=== PATIENT | male | born 1980 | race Caucasian/White ===

== ENCOUNTER → 2020-01-19 11:18 | Outpatient (BNVA) | payer OTHER, SELFPAY | PROVIDERS: PCP Internal Medicine; Referring Provider Internal Medicine; Visit Provider Surgery | DX: Z76.89 Persons encountering health services in other specified circumstances (principal) ==

== ENCOUNTER 2020-02-14 07:49 | Day surgery (SDC) | payer OTHER, SELFPAY ==
--- NOTE | 2020-02-13 09:27 | HO.ANESPROP2 ---
Documented by User: Vannesa Kim 02/13/20 09:28 HPI - Anesthesia Eval Consult details Narrative: 39yo M for [facility] Past Medical History Medical History (Updated 02/13/20 @ 09:28 by Vannesa Kim) No significant past medical history Family History Family History (Updated 01/16/20 @ 12:58 by RYAN Jarrell) Father No problems noted. Mother No problems noted. Surgical History Surgical History History of wisdom tooth extraction Social History Social History Smoking Status: Never smoker Second Hand Smoke Exposure: No Use of substances other than those prescribed or required for medical reasons: No Advance Directives: No Advance Directives Information Provided: Yes Advance Directives on File: No Meds Allergies Allergy/AdvReac Type Severity Reaction Status Date / Time shrimp Allergy Unknown Unknown Verified 01/19/20 11:39 milk Allergy Unknown Unknown Uncoded 01/16/20 12:56 Home Medications Medication Instructions Recorded Confirmed Type No Known Home Meds 01/16/20 01/16/20 History Exam Exam Date and Time: February 13, [id number] Assessment and Plan Assessment Anesthesia Assessment: Chart Reviewed Documented by User: Dennys Goldberg 02/14/20 09:10 [facility] Past Medical History Medical History (Updated 02/13/20 @ 09:28 by Vannesa Kim) No significant past medical history Family History Family History (Updated 01/16/20 @ 12:58 by RYAN Jarrell) Father No problems noted. Mother No problems noted. Surgical History Surgical History History of wisdom tooth extraction Social History Social History Smoking Status: Never smoker Second Hand Smoke Exposure: No Use of substances other than those prescribed or required for medical reasons: No Advance Directives: No Advance Directives Information Provided: Yes Advance Directives on File: No Meds Allergies Allergy/AdvReac Type Severity Reaction Status Date / Time shrimp Allergy Unknown Unknown Verified 01/19/20 11:39 milk Allergy Unknown Unknown Uncoded 01/16/20 12:56 Home Medications Medication Instructions Recorded Confirmed Type No Known Home Meds 01/16/20 01/16/20 History Exam Airway Mallampati Class: II TM Dist: >3cm Neck ROM: Full Heart: RRR Assessment and Plan Assessment Anesthesia Assessment: Anesthesia Plan Discussed Final Anesthetic Review NPO: Yes ASA Class: I Final Preanesthetic Review: Consent Obtained/Reviewed Anesthetic Plan Anesthetic Plan: GA
[2020-02-13 13:42] VITALS: BMI 24.3
[2020-02-14 08:19] VITALS: BP 127/68; PULSE 67; RESP 18; TEMP 36.1; O2SAT 98
[2020-02-14] MEDS: Lactated Ringers 1,000 ML 100 ML IVCONT (08:40)
--- NOTE | 2020-02-14 09:08 | MHC.SHP ---
Pre-Procedural Eval Section B Chief Complaint: Anal Abscess Allergies: Allergies Allergy/AdvReac Type Severity Reaction Status Date / Time shrimp Allergy Unknown Unknown Verified 01/19/20 11:39 milk Allergy Unknown Unknown Uncoded 01/16/20 12:56 Plan Patient has been examined and remains a candidate for the planned procedure
--- NOTE | 2020-02-14 10:35 | PM.OP ---
Brief Operative Note Date of procedure: 02/14/20 Pre-op diagnosis: anal fistula Post-op diagnosis: same Procedure: EUA, placement of seton x 2 Surgeon: Nelson Mckinley MD Anesthesia: GLMA Estimated blood loss (mL): 5 Pathology: none sent Condition: stable Disposition: PACU
[2020-02-14 10:38] VITALS: BP 106/61; PULSE 59; RESP 16; TEMP 36.6; O2SAT 95
[2020-02-14 10:43] VITALS: BP 104/56; PULSE 58; RESP 18; O2SAT 98
[2020-02-14 10:48] VITALS: BP 112/59; BP 115/60; PULSE 69; PULSE 74; RESP 18; O2SAT 97; O2SAT 98
[2020-02-14 11:07] VITALS: BP 116/52; PULSE 65; RESP 18; O2SAT 98
--- NOTE | 2020-02-14 11:30 | HO.POSTANES ---
Post Anesthesia Evaluation Post Anesthesia Evaluation Vital Signs: Vital Signs Temp Pulse Resp BP Pulse Ox 02/14/20 11:07 97.9 F 65 18 116/52 L 98 02/14/20 10:48 74 18 115/60 98 02/14/20 10:43 58 18 104/56 L 98 02/14/20 10:38 97.9 F 59 16 106/61 95 02/14/20 08:19 97 F 67 18 127/68 98 Anesthesia: General LMA Mental Status: Awake Pain Control: Satisfactory Nausea/Vomiting: None Hydration: Adequate Anesthesia-Related Issues: No Anes. Related Issues
--- NOTE | 2020-02-14 15:33 | OP_ITS ---
SURGEON: Nelson Mckinley MD INDICATIONS: The patient is a 39-year-old male, who has had recurrent perianal drainage and swelling and abscess. He was seen in the office and was noted to have 2 external sinuses, one on the left anterior about 4 cm from the verge and one at right posterior at about 2.3 cm from the anal verge. This had not gone away at all and had described periodic drainage. There was no obvious indurated tract. I therefore told him that there was a likelihood that these are because of anal fistula, so I told him that it would be best to proceed with exam under anesthesia and see if we can identify any tract. He understood technique of the procedure. He is aware of the risks, benefits, and alternatives. PREOPERATIVE DIAGNOSIS: POSTOPERATIVE DIAGNOSIS: Anal fistula x2. PROCEDURE PERFORMED: Exam under anesthesia, seton placement x2. ESTIMATED BLOOD LOSS: COMPLICATIONS: ANESTHESIA: ASSISTANTS: SPECIMENS: PREOPERATIVE DIAGNOSES: Recurrent perianal abscess, question anal fistula. DESCRIPTION OF PROCEDURE: He was brought to the operating room, placed in prone lanette-knife position under general anesthesia via endotracheal tube. The buttocks were retracted with wide tape laterally. The perianal area was prepped and draped in usual sterile fashion. Again, an examination of the anal orifice revealed an external sinus at about 4 cm from the anal verge in the left anterior and right posterior at about 2.3 cm from the anal verge. I inserted the Javier-Maher retractor. I examined the anal canal circumferentially. I could not visualize any obvious internal fistulous opening. Furthermore, there was no cord-like induration that would represent a tract. I injected hydrogen peroxide into the external sinus using 20-gauge Angiocath and this came out through an internal sinus opening radially just at the level of the dentate line. I earlier tried to probe the sinus could not identify clear tract. Now, we had the internal sinus opening, this will identify, proceeded to then directed my probe from the external fistulous opening gently through the tract all the way into the internal sinus that had been identified. I passed the [place] drain through this tract using the probe. I looped the [place] drain and tied the loop with silk 3-0 tie. I had shortened the tract and cornelio the skin and subcutaneous layer on the external fistulous opening. I then proceeded to duplicated the same procedure on what appeared to be an external sinus opening on the right posterior. Again, I attempted to identify a tract by using a probe gently, but this was unsuccessful. I injected hydrogen peroxide again through an angiocath through this external sinus effluent through an internal sinus opening at the dentate line radially as well. Either passed the probe again from the external sinus through the tract into the internal sinus opening and passed the [place] drain with this. I passed a vessel loop with this. The vessel loop was looped upon itself and tied together with silk 3-0 tie as a seton. I examined the entire anal circumference using a Javier-Maher retractor and there was no other pathology identified. There was no indurated areas or any other sinus tract openings. I therefore removed the Javier-Maher retractor. I infiltrated the perianal area with Marcaine 0.5% for postop analgesia. The procedure was completed. The patient tolerated the procedure well. There were no complications noted. He will be seen in the office to tighten the seton in about 3 weeks. MD CHIQUI Hahn/HANNAH / [id number]
== END 2020-02-14 11:49 | disposition home or self-care (01) ==
PROVIDERS: PCP Internal Medicine; Visit Provider Surgery
PROC: (CPT 46020; principal; 2020-02-14 09:40)
DX: K60.3 Anal fistula (principal)
CPT/HCPCS: 46020; J0131; J0330; J1100; J1885; J2250; J2405; J3010

== ENCOUNTER → 2020-03-01 14:07 | Outpatient (BNVA) | payer OTHER, SELFPAY | PROVIDERS: PCP Internal Medicine; Visit Provider Surgery | DX: Z76.89 Persons encountering health services in other specified circumstances (principal) ==

== ENCOUNTER 2020-03-07 09:28 | Outpatient (REF) | payer OTHER, SELFPAY | END 2020-03-07 09:29 | disposition home or self-care (01) | LOC: HO.LAB 09:28 | PROVIDERS: PCP Internal Medicine; Visit Provider Internal Medicine | DX: Z20.828 Contact with and (suspected) exposure to other viral communicable diseases (principal) | CPT/HCPCS: C9803; U0003 ==

== ENCOUNTER → 2020-03-22 13:46 | Outpatient (BNVA) | payer OTHER, SELFPAY | PROVIDERS: PCP Internal Medicine; Referring Provider Internal Medicine; Visit Provider Surgery | DX: Z76.89 Persons encountering health services in other specified circumstances (principal) ==

== ENCOUNTER → 2020-05-09 15:08 | Outpatient (BNVA) | payer OTHER, SELFPAY | PROVIDERS: PCP Internal Medicine; Referring Provider Internal Medicine; Visit Provider Surgery ==

== ENCOUNTER → 2020-06-11 09:55 | Outpatient (BNVA) | payer OTHER, SELFPAY | PROVIDERS: PCP Internal Medicine; Visit Provider Surgery ==

== ENCOUNTER → 2020-07-09 10:00 | Outpatient (BNVA) | payer OTHER, SELFPAY | PROVIDERS: PCP Internal Medicine; Visit Provider Surgery ==

== ENCOUNTER → 2020-08-13 10:01 | Outpatient (BNVA) | payer OTHER, SELFPAY | PROVIDERS: PCP Internal Medicine; Visit Provider Surgery ==

== ENCOUNTER → 2020-09-12 10:08 | Outpatient (BNVA) | payer OTHER, SELFPAY | PROVIDERS: PCP Internal Medicine; Visit Provider Surgery ==

== ENCOUNTER → 2020-10-15 10:26 | Outpatient (BNVA) | payer OTHER, SELFPAY | PROVIDERS: PCP Internal Medicine; Referring Provider Internal Medicine; Visit Provider Surgery ==

== ENCOUNTER → 2020-11-15 11:14 | Outpatient (BNVA) | payer OTHER, SELFPAY | PROVIDERS: PCP Internal Medicine; Referring Provider Internal Medicine; Visit Provider Surgery ==

== ENCOUNTER → 2020-12-13 09:53 | Outpatient (BNVA) | payer OTHER, SELFPAY | PROVIDERS: PCP Internal Medicine; Visit Provider Surgery ==

== ENCOUNTER → 2021-02-07 14:52 | Outpatient (BNVA) | payer MEDICAID, SELFPAY | PROVIDERS: Visit Provider Surgery ==

== ENCOUNTER → 2021-07-03 09:08 | Outpatient (BNVA) | payer MEDICAID, SELFPAY | PROVIDERS: Visit Provider Surgery | DX: K60.3 Anal fistula (principal) | CPT/HCPCS: 99212 ==

== ENCOUNTER → 2021-08-12 11:03 | Outpatient (BNVA) | payer MEDICAID, SELFPAY | PROVIDERS: Visit Provider Surgery | DX: Z09 Encounter for follow-up examination after completed treatment for conditions other than malignant neoplasm (principal); Z87.19 Personal history of other diseases of the digestive system | CPT/HCPCS: 99212 ==

== ENCOUNTER → 2021-10-09 15:25 | Outpatient (BNVA) | payer MEDICAID, SELFPAY | PROVIDERS: Visit Provider Surgery | DX: K60.3 Anal fistula (principal) | CPT/HCPCS: 99212 ==

== ENCOUNTER → 2022-07-16 11:18 | Outpatient (BNVA) | payer OTHER, SELFPAY | PROVIDERS: PCP Nurse Practitioner Family; Visit Provider Surgery | DX: Z13.89 Encounter for screening for other disorder (principal) ==

== ENCOUNTER 2023-02-26 11:18 | Outpatient (AMB) | payer OTHER, SELFPAY ==
--- NOTE | 2023-02-26 11:22 | A.OFFVIS_ITS ---
Intake Vital Signs 02/26/23 11:23 Height 6 ft 2 in Weight 206 lb BMI 26.4 BP 126/71 Blood Pressure Location Rt brachial Position Sitting Pulse 58 Intake Visit Reasons: Perianal abscess, rediscuss exam under anesthesia Intake Note: This patient presents for an assessment for perianal abscess, rediscuss EUA. Patient c/o; reports no changes or complaints at this time. 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 He had 2 anal fistulas and had undergone seton placement for both of these in 2020 for an anal fistula and this had cut through the fistula tract last year. However, the past few months, he has been noticing recurrent drainage from the perianal area again on the left side. The old fistula on the right side has healed completely.. He denies any pain. I had seen him earlier this year and had scheduled him for an exam under anesthesia but he just started a new job so he had put that off in the meantime. He says he is ready to have the exam under anesthesia scheduled. [facility] Medical History Anal fistula No significant past medical history Surgical History History of surgery (02/14/20) History of wisdom tooth extraction Family History Father No problems noted. Mother No problems noted. Social History Housing: House Alcohol intake: current Alcohol intake frequency: a few times a month Patient Tobacco Use Status: Never used Tobacco Second Hand Smoke Exposure: No service: No Current occupational status: employed Cognitive needs: No Hearing needs: No Vision needs: No Review of Systems Const Denies chills and Denies fever(s) Card Denies chest pain, Denies dyspnea and Denies dyspnea on exertion Resp Denies cough, Denies dyspnea and Denies dyspnea on exertion GI Denies hematochezia and Denies change in bowel habits Denies hematuria and Denies difficulty urinating Musc Denies back pain and Denies limited range of motion Neuro Denies focal weakness and Denies convulsions Psych Denies depression and Denies mood swings Physical Exam Vital Signs: Last Vital Signs Pulse 58 02/26/23 11:23 BP 126/71 02/26/23 11:23 BMI result Body Mass Index 26.4 Const General: comfortable and no acute distress Orientation/consciousness: patient oriented x3 Neck Neck: Yes no lymphadenopathy Resp Auscultation: clear to auscultation bilaterally Cardio Rhythm: regular rhythm GI Other: Rectal exam shows what to be a sinus without any significant induration on the left perianal area anteriorly about 2 cm from the verge, dry, no swelling Palpation (GI): Soft to palpation, nontender and no guarding Neuro General: patient oriented x3 Assessment & Plan Assessment & Plan (1) Anal fistula: Code(s): K60.3 - Anal fistula Plan: He has a history of 2 anal fistulas with seton placement for both in the past. It appears that he has a recurrent fistula with a sinus on the left anterior perianal area about 2 cm from the anal verge. I explained to him the technique of exam under anesthesia to identify any fistulous tract. I explained the possibility of doing a repeat seton placement or fistulotomy. I discussed the risks including but not limited to bleeding, infections, poor healing, think her injury, as well as the benefits and alternatives. Coding Level of Care Code Est Pt Level 3 (28284) Diagnoses Anal fistula K60.3
[2023-02-26 11:23] VITALS: BP 126/71; PULSE 58; BMI 26.4
== END 2023-02-26 11:38 | disposition home or self-care (01) ==
PROVIDERS: PCP Nurse Practitioner Family; Visit Provider Surgery
DX: K60.3 Anal fistula (principal)
CPT/HCPCS: 99213

== ENCOUNTER → 2023-02-26 11:18 | Outpatient (BNVA) | payer OTHER, SELFPAY | PROVIDERS: PCP Nurse Practitioner Family; Visit Provider Surgery ==

== ENCOUNTER 2023-03-31 07:29 | Day surgery (SDC) | payer OTHER, SELFPAY ==
[2023-03-27 10:23] VITALS: BMI 26.4
--- NOTE | 2023-03-30 08:30 | HO.ANESPROP2 ---
Documented by User: Vannesa Kim NP 03/30/23 08:30 HPI - Anesthesia Eval Consult details Narrative: 42yo M for EUA,poss Fistulotomy,poss senton PMFSH Active Problems Active Problems: All Active Problems (Updated 07/16/22 @ 11:53 by Nelson Mckinley MD) Toenail fungus (Acute) Skin lesion (Acute) Physical exam (Acute) Anal fistula (Acute) Perianal abscess (Acute) Past Medical History Medical History Anal fistula No significant past medical history Family History Family History Father No problems noted. Mother No problems noted. Surgical History Surgical History History of surgery (02/14/20) History of wisdom tooth extraction Social History Social History Housing: House Alcohol intake: current Alcohol intake frequency: a few times a month Patient Tobacco Use Status: Never used Tobacco Second Hand Smoke Exposure: No Use of substances other than those prescribed or required for medical reasons: Yes Substance Use Frequency: Occasionally Are you DNR?: No Advance Directives: No Advance Directives Information Provided: Yes Advance Directives on File: No service: No Current occupational status: employed Cognitive needs: No Hearing needs: No Vision needs: No Meds Allergies Allergy/AdvReac Type Severity Reaction Status Date / Time shrimp Allergy Unknown Unknown Verified 02/26/23 11:29 milk Allergy Unknown Unknown Uncoded 02/26/23 11:29 Exam Height,Weight and Vital Signs: Height 6 ft 2 in Weight 93.44 kg Assessment and Plan Assessment Anesthesia Assessment: Chart Reviewed Documented by User: Rosa Maria Nuñez MD 03/31/23 09:31 PMFSH Past Medical History Medical History Anal fistula No significant past medical history Family History Family History Father No problems noted. Mother No problems noted. Surgical History Surgical History History of surgery (02/14/20) History of wisdom tooth extraction History of Problems with Anesthesia: No Social History Social History Housing: House Alcohol intake: current Alcohol intake frequency: a few times a month Patient Tobacco Use Status: Never used Tobacco Second Hand Smoke Exposure: No Use of substances other than those prescribed or required for medical reasons: Yes Substance Use Frequency: Occasionally Are you DNR?: No Advance Directives: No Advance Directives Information Provided: Yes Advance Directives on File: No service: No Current occupational status: employed Cognitive needs: No Hearing needs: No Vision needs: No Meds Allergies Allergy/AdvReac Type Severity Reaction Status Date / Time shrimp Allergy Unknown Unknown Verified 02/26/23 11:29 milk Allergy Unknown Unknown Uncoded 02/26/23 11:29 Exam Airway Mallampati Class: III TM Dist: >3cm Neck ROM: Full Loose/Missing/Broken Teeth: No Heart: RRR Lungs: CTA Assessment and Plan Assessment Anesthesia Assessment: Anesthesia Plan Discussed Final Anesthetic Review History of Problems with Anesthesia: No NPO: Yes ASA Class: II Final Preanesthetic Review: Meds/Allgs Chart Reviewed, Consent Obtained/Reviewed and Anes Risks/Benef Reviewed Patient Risk: Low Procedure Risk: Intermediate Anesthetic Plan Anesthetic Plan: GA Disposition: Standard PACU
[2023-03-31 07:53] VITALS: BMI 25.6
[2023-03-31 08:16] VITALS: BP 124/72; PULSE 65; RESP 16; TEMP 36.7; O2SAT 100
[2023-03-31] MEDS: Lactated Ringers 1,000 ML 100 ML IVCONT (08:18)
--- NOTE | 2023-03-31 09:11 | P.HPSUR_ITS ---
Pre-Procedural Eval Section A Date of Service: 03/31/23 Section B Chief Complaint: Anal fistula Details of Present Illness: has recurrence of a fistulous tract on the left perianal area Relevant Social History: None Present Medications: see Short Stay Collaborative assessment Medical History: Significant History (previous seton) History of Previous Operations: Relevant previous surgery/procedure and date(s) (previous seton 2 years ago) Allergies: Allergies Allergy/AdvReac Type Severity Reaction Status Date / Time shrimp Allergy Unknown Unknown Verified 02/26/23 11:29 milk Allergy Unknown Unknown Uncoded 02/26/23 11:29 Review of Systems Sugical H&P ROS: Negative: Constitution, Cardiovascular, Respiratory, Neurological, Psychiatric, Hem-Onc, Allergic/Immunologic, Gastrointestinal, Genitourinary, Musculoskeletal, Integumentary, Endocrine and Eyes/Ear s/Nose/Throat Exam Surgical H&P Exam: Normal: HEENT, Normal: Heart, Normal: Lungs, Normal: Extremities, Normal: Abdomen, Normal: Skin and Normal: Neurological Exam Comment: anal fistula, Plan Diagnosis/Plan: Unchanged I have reviewed the history and physical and performed a pertinent physical examination on my patient. No changes have occurred unless specified. Time Spent With Patient Time: Total time managing care of this patient today ____ minutes.
--- NOTE | 2023-03-31 10:15 | W.PM.OPN ---
Operative Note Operative Note Date of Service: 03/31/23 Narrative: Preop diagnosis: Fistula, recurrent Postop diagnose: The same Procedure: Exam under anesthesia, placement of seton for anal fistula Surgeon: Nelson Mckinley MD The patient is a 42-year-old male with note of an area of recurrent drainage on the left perianal region. This was consistent with an anal fistula. He had a history of this in the past and had undergone seton placement. He understood the technique of exam under anesthesia and possible seton placement. He was aware of the risks, benefits, and alternatives. He was brought to the operating room. He was placed in prone lanette-knife position under general anesthesia via endotracheal tube. The buttocks were retracted with wide tape laterally. The perianal area was prepped and draped in the usual sterile fashion. A surgical time-out was done. The patient received Cefotan 2 g IV preoperatively. I reiterated the perianal area with lidocaine 1%. Examination of the perianal area revealed an external sinus on the left perianal skin, about 2 cm from the anal verge. I inserted the Javier Maher retractor. I examined the anal canal circumferentially. He had hemorrhoidal tissue but there was no other pathology seen in the anal canal. I started a probe through the external sinus in this was gently advanced without difficulty to an internal sinus in the anal canal radially dentate line. I passed a seton using this probe. I tighten the seton and close the loop with a silk 2 0 tie. I shorten the fistula tract by opening up the seen overlying the seton at the external sinus with electrocautery. I observed for hemostasis. Once hemostasis wa confirmed, I infiltrated the perianal area with Marcaine 0.5% for postop analgesia. The procedure was then completed The patient tolerated procedure well. There were no immediate complications. Initial and final counts of sponges and instruments were correct. Estimated blood loss was about 5 cc The patient was extubated without difficulty and transferred to the recovery room with stable vital signs.
[2023-03-31 10:25] VITALS: BP 121/63; PULSE 75; RESP 18; TEMP 36.4; O2SAT 99
[2023-03-31 10:30] VITALS: BP 120/72; PULSE 80; RESP 18; O2SAT 98
[2023-03-31 10:35] VITALS: BP 123/69; PULSE 66; RESP 20; O2SAT 96
[2023-03-31 10:40] VITALS: BP 117/71; PULSE 65; RESP 18; TEMP 36.3; O2SAT 96
[2023-03-31 10:55] VITALS: BP 121/70; PULSE 61; RESP 16; TEMP 36.3; O2SAT 96
== END 2023-03-31 11:39 | disposition home or self-care (01) ==
PROVIDERS: Visit Provider Surgery
PROC: (CPT 46020; principal; 2023-03-31 09:10)
DX: K60.3 Anal fistula (principal); K64.8 Other hemorrhoids; Z98.890 Other specified postprocedural states
CPT/HCPCS: 46020; J0131; J1100; J1885; J2250; J2405; J2704; J2795; J3010

== ENCOUNTER → 2023-03-31 07:29 | Outpatient (BNV) | payer OTHER, SELFPAY | PROVIDERS: Visit Provider Surgery | DX: K60.3 Anal fistula (principal) | CPT/HCPCS: 46020 ==

== ENCOUNTER 2023-04-15 09:31 | Outpatient (AMB) | payer OTHER, SELFPAY ==
--- NOTE | 2023-04-15 09:59 | MHC.OFFVIS ---
Intake Intake Visit Reasons: S/P EUA, poss fistulotomy, poss seton Intake Note: This patient presents for a post-op assessment status post EUA, seton placement. Patient c/o; reports drainage, ? seton moved. 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 He tolerated procedure well. He denies any significant complaints. He denies any new induration or significant discharge. [facility] Medical History Anal fistula No significant past medical history Surgical History Hx of surgical procedure (~03/31/23) History of surgery (02/14/20) History of wisdom tooth extraction Family History Father No problems noted. Mother No problems noted. Social History Housing: House Alcohol intake: current Alcohol intake frequency: a few times a month Patient Tobacco Use Status: Never used Tobacco Second Hand Smoke Exposure: No service: No Current occupational status: employed Cognitive needs: No Hearing needs: No Vision needs: No Review of Systems Const Denies chills and Denies fever(s) Card Denies chest pain, Denies dyspnea and Denies dyspnea on exertion Resp Denies cough, Denies dyspnea and Denies dyspnea on exertion GI Denies hematochezia and Denies change in bowel habits Denies hematuria and Denies difficulty urinating Musc Denies back pain and Denies limited range of motion Neuro Denies focal weakness and Denies convulsions Psych Denies depression and Denies mood swings Physical Exam Const General: comfortable and no acute distress GI Other: Rectal exam shows the seton to be in place, no new induration or an fistula, Assessment & Plan Assessment & Plan (1) Anal fistula: Code(s): K60.3 - Anal fistula Plan: Status post seton placement. The fistula tract appears short. The seton seems snug around this so I did not tighten this. There is no new sinus, induration or abscess I will see him again in about a month and see if I can tighten the seton. Coding Level of Care Code Global (78626) Diagnoses Anal fistula K60.3
== END 2023-04-15 10:41 | disposition home or self-care (01) ==
PROVIDERS: PCP Nurse Practitioner Family; Visit Provider Surgery
DX: K60.3 Anal fistula (principal)
CPT/HCPCS: 99024

== ENCOUNTER → 2023-04-15 09:31 | Outpatient (BNVA) | payer OTHER, SELFPAY | PROVIDERS: PCP Nurse Practitioner Family; Visit Provider Surgery ==

== ENCOUNTER 2023-07-01 15:30 | Outpatient (AMB) | payer OTHER, SELFPAY ==
--- NOTE | 2023-07-01 15:33 | MHC.OFFVIS ---
Intake Vital Signs 07/01/23 15:38 Weight 205 lb BP 125/66 Blood Pressure Location Rt brachial Position Sitting Pulse 63 Intake Visit Reasons: anal fistula, seton Intake Note: This patient presents for a follow-up assessment for seton. Pt c/o; reports no changes. 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 He is here for postop visit. He denies any new complaints. Denies any significant drainage. [facility] Medical History Anal fistula No significant past medical history Surgical History Hx of surgical procedure (~03/31/23) History of surgery (02/14/20) History of wisdom tooth extraction Family History Father No problems noted. Mother No problems noted. Social History Housing: House Alcohol intake: current Alcohol intake frequency: a few times a month Patient Tobacco Use Status: Never used Tobacco Second Hand Smoke Exposure: No service: No Current occupational status: employed Cognitive needs: No Hearing needs: No Vision needs: No Review of Systems Const Denies chills and Denies fever(s) Card Denies chest pain, Denies dyspnea and Denies dyspnea on exertion Resp Denies cough, Denies dyspnea and Denies dyspnea on exertion GI Denies hematochezia and Denies change in bowel habits Denies hematuria and Denies difficulty urinating Musc Denies back pain and Denies limited range of motion Neuro Denies focal weakness and Denies convulsions Psych Denies depression and Denies mood swings Physical Exam Vital Signs: Last Vital Signs Pulse 63 07/01/23 15:38 BP 125/66 07/01/23 15:38 Const General: comfortable and no acute distress Resp Effort & Inspection: normal respiratory effort GI Other: Rectal exam shows the seton to be in place, the fistula tract is short, there has no new induration or any sinus Assessment & Plan Assessment & Plan (1) Anal fistula: Code(s): K60.3 - Anal fistula Plan: Status post seton placement. I tighten the seton to make this more snug around the remaining fistula tract. The tract itself is short. I will see him again in the office in about a month. Coding Level of Care Code Est Pt Level 2 (55416) Diagnoses Anal fistula K60.3
[2023-07-01 15:38] VITALS: BP 125/66; PULSE 63
== END 2023-07-01 15:51 | disposition home or self-care (01) ==
PROVIDERS: PCP Nurse Practitioner Family; Visit Provider Surgery
DX: K60.3 Anal fistula (principal)
CPT/HCPCS: 99212

== ENCOUNTER → 2023-07-01 15:30 | Outpatient (BNVA) | payer OTHER, SELFPAY | PROVIDERS: PCP Nurse Practitioner Family; Visit Provider Surgery ==

== ENCOUNTER 2023-08-06 15:36 | Outpatient (AMB) | payer OTHER, SELFPAY ==
--- NOTE | 2023-08-06 15:42 | A.OFFVIS_ITS ---
Vital Signs 08/06/23 15:47 Weight 199 lb BP 119/56 L Blood Pressure Location Rt brachial Position Sitting Pulse 59 Intake Visit Reasons: anal fistula, seton, 1 mo follow up Intake Note: This patient presents for a one month follow-up for seton. Patient c/o; reports no complaints. Battery Container Finishing Hand Required: No Accompanied by: Self / Same As Patient Allergies shrimp Allergy (Unknown, Verified 08/06/23 15:42) Unknown milk Allergy (Unknown, Uncoded 08/06/23 15:42) Unknown Medication List - Last Reconciled 08/06/23 by Nelson Mckinley MD docusate sodium (Colace) 100 mg PO BID ibuprofen 600 mg PO Q6H PRN oxycodone-acetaminophen 5-325 mg (Percocet) 1 tab PO Q4-6H PRN HPI HPI anal fistula, seton, 1 mo follow up: Details: He is here for follow-up for his anal fistula with a seton in place. He denies any new complaints. Denies any significant drainage from the area. He denies pain nor any new induration. PFSH Medical History Anal fistula No significant past medical history Surgical History Hx of surgical procedure (~03/31/23) History of surgery (02/14/20) History of wisdom tooth extraction Family History Father No problems noted. Mother No problems noted. Social History Housing: House Alcohol intake: current Alcohol intake frequency: a few times a month Patient Tobacco Use Status: Never used Tobacco Second Hand Smoke Exposure: No service: No Current occupational status: employed Cognitive needs: No Hearing needs: No Vision needs: No Physical Exam Vital Signs: Last Vital Signs Pulse 59 08/06/23 15:47 BP 119/56 L 08/06/23 15:47 Const General: comfortable and no acute distress Resp Effort & Inspection: normal respiratory effort GI Other: Rectal exam shows the seton in place on the left perianal area with a short residual tract. The seton seems to be still very snug around the remaining tract. There were no new induration or sinuses. Assessment & Plan Assessment & Plan (1) Anal fistula: Code(s): K60.3 - Anal fistula Category: Medical Plan: Seton in place. I did not tighten the seton as this will still very snug around the remaining fistula tract. I will see him again next week and re-evaluate him. There has a good chance that we will probably do a completion fistulotomy if there has no significant involvement of sphincter anymore by then. I will discuss this with him on his next visit.
[2023-08-06 15:47] VITALS: BP 119/56; PULSE 59
== END 2023-08-06 16:06 | disposition home or self-care (01) ==
PROVIDERS: PCP Nurse Practitioner Family; Visit Provider Surgery
DX: K60.3 Anal fistula (principal)
CPT/HCPCS: 99212

== ENCOUNTER → 2023-08-06 15:36 | Outpatient (BNVA) | payer OTHER, SELFPAY | PROVIDERS: PCP Nurse Practitioner Family; Visit Provider Surgery ==

== ENCOUNTER 2023-09-03 15:43 | Outpatient (AMB) | payer OTHER, SELFPAY ==
--- NOTE | 2023-09-03 15:43 | A.OFFVIS_ITS ---
Intake Visit Reasons: anal fistula, seton, 1 mo follow up Intake Note: This patient presents for a one month follow-up, seton. Pt c/o; reports no changes or complaints at this time. Immersion Metal Cleaner Required: No Accompanied by: Self / Same As Patient Allergies shrimp Allergy (Unknown, Verified 09/03/23 15:44) Unknown milk Allergy (Unknown, Uncoded 09/03/23 15:44) Unknown Medication List - Last Reconciled 09/03/23 by Nelson Mckinley MD docusate sodium (Colace) 100 mg PO BID ibuprofen 600 mg PO Q6H PRN oxycodone-acetaminophen 5-325 mg (Percocet) 1 tab PO Q4-6H PRN HPI HPI anal fistula, seton, 1 mo follow up: Details: He is here for follow-up for his anal fistula with a seton in place. He denies any new complaints. He denies any significant drainage. PFSH Medical History Anal fistula No significant past medical history Surgical History Hx of surgical procedure (~03/31/23) History of surgery (02/14/20) History of wisdom tooth extraction Family History Father No problems noted. Mother No problems noted. Social History Housing: House Alcohol intake: current Alcohol intake frequency: a few times a month Patient Tobacco Use Status: Never used Tobacco Second Hand Smoke Exposure: No service: No Current occupational status: employed Cognitive needs: No Hearing needs: No Vision needs: No Review of Systems Const Denies chills and Denies fever(s) Card Denies chest pain, Denies dyspnea and Denies dyspnea on exertion Resp Denies cough, Denies dyspnea and Denies dyspnea on exertion GI Denies hematochezia and Denies change in bowel habits Denies hematuria and Denies difficulty urinating Musc Denies back pain and Denies limited range of motion Neuro Denies focal weakness and Denies convulsions Psych Denies depression and Denies mood swings Physical Exam Const General: comfortable and no acute distress GI Other: Rectal exam shows the seton to be in place, still tight around the remaining fistula tract. The fistula tract is now very short Assessment & Plan Assessment & Plan (1) Anal fistula: Code(s): K60.3 - Anal fistula Category: Medical Plan: Seton in place. I explained to him the option of bringing him back to the operating room and doing a fistulotomy on the remaining fistula tract. The other option is to continue to keep the seton in place and allow it to cut through completely which may take time. He wants to think about this. He says he will leave the seton in place and we will see him again in about a month. He will decide on whether he wants to go to a fistulotomy by then. Coding Level of Care Code Est Pt Level 2 (74133) Diagnoses Anal fistula K60.3
== END 2023-09-03 15:58 | disposition home or self-care (01) ==
PROVIDERS: PCP Nurse Practitioner Family; Visit Provider Surgery
DX: K60.3 Anal fistula (principal)
CPT/HCPCS: 99212

== ENCOUNTER → 2023-09-03 15:43 | Outpatient (BNVA) | payer OTHER, SELFPAY | PROVIDERS: PCP Nurse Practitioner Family; Visit Provider Surgery ==

== ENCOUNTER 2024-01-11 16:04 | Outpatient (AMB) | payer OTHER, SELFPAY ==
--- NOTE | 2024-01-11 16:05 | MHC.OFFVIS ---
Intake Visit Reasons: 1 month seton follow up Intake Note: This patient presents for follow-up assessment for seton. Pt c/o; reports no complaints. Cyber Forensics Analyst Required: No Accompanied by: Self / Same As Patient Allergies shrimp Allergy (Unknown, Verified 01/11/24 16:08) Unknown milk Allergy (Unknown, Uncoded 01/11/24 16:08) Unknown Medication List - Last Reconciled 01/12/24 by Nelson Mckinley MD docusate sodium (Colace) 100 mg PO BID ibuprofen 600 mg PO Q6H PRN oxycodone-acetaminophen 5-325 mg (Percocet) 1 tab PO Q4-6H PRN HPI HPI 1 month seton follow up: Details: He is here for follow-up for his seton for his anal fistula. He denies any new complaints. He denies any significant drainage. PFSH Medical History Anal fistula No significant past medical history Surgical History Hx of surgical procedure (~03/31/23) History of surgery (02/14/20) History of wisdom tooth extraction Family History Father No problems noted. Mother No problems noted. Social History Housing: House Alcohol intake: current Alcohol intake frequency: a few times a month Patient Tobacco Use Status: Never used Tobacco Second Hand Smoke Exposure: No service: No Current occupational status: employed Cognitive needs: No Hearing needs: No Vision needs: No Review of Systems Const Denies chills and Denies fever(s) Card Denies chest pain, Denies dyspnea and Denies dyspnea on exertion Resp Denies cough, Denies dyspnea and Denies dyspnea on exertion GI Denies hematochezia and Denies change in bowel habits Denies hematuria and Denies difficulty urinating Musc Denies back pain and Denies limited range of motion Neuro Denies focal weakness and Denies convulsions Psych Denies depression and Denies mood swings Physical Exam Const General: comfortable and no acute distress Resp Effort & Inspection: normal respiratory effort GI Other: Rectal exam shows the seton to be in place with a very short fistula tract remaining on the left side, no new sinuses Assessment & Plan Assessment & Plan (1) Anal fistula: Code(s): K60.3 - Anal fistula Category: Medical Plan: I was still able to tighten the seton some more using a silk 2-0 tie. This was snug on the very short residual fistula tract I will see him again in the office next month. I am hoping that the seton was cut through completely by then. Coding Level of Care Code Est Pt Level 2 (32396) Diagnoses Anal fistula K60.3
== END 2024-01-11 16:16 | disposition home or self-care (01) ==
PROVIDERS: PCP Nurse Practitioner Family; Visit Provider Surgery
DX: K60.3 Anal fistula (principal)
CPT/HCPCS: 99212

== ENCOUNTER → 2024-01-11 16:04 | Outpatient (BNVA) | payer OTHER, SELFPAY | PROVIDERS: PCP Nurse Practitioner Family; Visit Provider Surgery ==

== ENCOUNTER 2024-02-15 15:41 | Outpatient (AMB) | payer OTHER, SELFPAY ==
[2024-02-15 15:46] VITALS: BP 126/63; PULSE 58; BMI 25.6
--- NOTE | 2024-02-15 15:46 | MHC.OFFVIS ---
Vital Signs 02/15/24 15:46 Height 6 ft 2 in Weight 199 lb 8 oz BMI 25.6 BP 126/63 Blood Pressure Location Rt brachial Position Sitting Pulse 58 Intake Visit Reasons: 1 month seton follow up Intake Note: This patient presents for one month follow-up seton. Pt c/o; reports no complaints. Transformation Consultant Required: No Accompanied by: Self / Same As Patient Allergies shrimp Allergy (Unknown, Verified 02/15/24 15:47) Unknown milk Allergy (Unknown, Uncoded 02/15/24 15:47) Unknown Medication List - Last Reconciled 02/15/24 by Nelson Mckinley MD docusate sodium (Colace) 100 mg PO BID ibuprofen 600 mg PO Q6H PRN oxycodone-acetaminophen 5-325 mg (Percocet) 1 tab PO Q4-6H PRN HPI HPI 1 month seton follow up: Details: He is here for follow-up for his anal fistula with a seton in place. He denies any complaints with this. He denies any pain or tenderness. He says that the seton is still in place. [facility] Medical History Anal fistula No significant past medical history Surgical History Hx of surgical procedure (~03/31/23) History of surgery (02/14/20) History of wisdom tooth extraction Family History Father No problems noted. Mother No problems noted. Social History Housing: House Alcohol intake: current Alcohol intake frequency: a few times a month Patient Tobacco Use Status: Never used Tobacco Second Hand Smoke Exposure: No service: No Current occupational status: employed Cognitive needs: No Hearing needs: No Vision needs: No Review of Systems Const Denies chills and Denies fever(s) Card Denies chest pain Resp Denies cough GI Denies abdominal pain Physical Exam Vital Signs: Last Vital Signs Pulse 58 02/15/24 15:46 BP 126/63 02/15/24 15:46 BMI result Body Mass Index 25.6 Const General: comfortable and no acute distress Resp Effort & Inspection: normal respiratory effort Back/Spine/Pelvis Other: Rectal exam shows the seton to be in place with a very short remaining fistula tract. The seton is still tight there is no evidence of any new sinus or induration Assessment & Plan Assessment & Plan (1) Anal fistula: Code(s): K60.3 - Anal fistula Category: Medical Plan: Status post seton placement. The seton remains very tight on the short the tract. I therefore did not tighten this. I will see him again in about 1-2 months. I expect the seton to eventually cut through completely. Overall, he is doing very well. Coding Level of Care Code Est Pt Level 2 (24766) Diagnoses Anal fistula K60.3
== END 2024-02-15 15:50 | disposition home or self-care (01) ==
LOC: HO.HGS 15:42
PROVIDERS: PCP Nurse Practitioner Family; Visit Provider Surgery
DX: K60.30 Anal fistula, unspecified (principal)
CPT/HCPCS: 99212

== ENCOUNTER → 2024-02-15 15:41 | Outpatient (BNVA) | payer OTHER, SELFPAY | PROVIDERS: PCP Nurse Practitioner Family; Visit Provider Surgery ==

== ENCOUNTER 2024-03-24 15:45 | Outpatient (AMB) | payer OTHER, SELFPAY ==
--- NOTE | 2024-03-24 16:05 | MHC.OFFVIS ---
Vital Signs 03/24/24 16:06 Height 6 ft 2 in Weight 199 lb 8.011 oz BMI 25.6 BP 122/58 L Blood Pressure Location Rt brachial Position Sitting Pulse 56 Intake Visit Reasons: one month follow-up seton Intake Note: This patient presents for one month follow-up seton. Pt c/o; reports no complaints. Tombstone Polisher Required: No Accompanied by: Self / Same As Patient Allergies shrimp Allergy (Unknown, Verified 03/24/24 16:12) Unknown milk Allergy (Unknown, Uncoded 03/24/24 16:12) Unknown HPI HPI one month follow-up seton: Details: He is here for follow-up for his anal fistula with a seton in place. He denies any new complaints. Denies any induration or new discharge. PFSH Medical History Anal fistula No significant past medical history Surgical History Hx of surgical procedure (~03/31/23) History of surgery (02/14/20) History of wisdom tooth extraction Family History Father No problems noted. Mother No problems noted. Social History Housing: House Alcohol intake: current Alcohol intake frequency: a few times a month Patient Tobacco Use Status: Never used Tobacco Second Hand Smoke Exposure: No service: No Current occupational status: employed Cognitive needs: No Hearing needs: No Vision needs: No Review of Systems Const Denies chills and Denies fever(s) Card Reports no additional complaints Resp Reports no additional complaints Physical Exam Vital Signs: BMI result Body Mass Index 25.6 Const General: comfortable and no acute distress Resp Effort & Inspection: normal respiratory effort GI Other: Rectal exam shows the seton to be in place but with a very short remaining fistula tract, probably 4 mm in length with no other areas of induration or sinuses Assessment & Plan Assessment & Plan (1) Anal fistula: Code(s): K60.3 - Anal fistula Category: Medical Plan: His fistula tract this even much shorter in his down to maybe a few mm. He is able to tighten the seton a little more although there is not much length left. I will not be surprised if the seton cut through completely few weeks I will check on him again in about a month. Coding Level of Care Code Est Pt Level 2 (52789) Diagnoses Anal fistula K60.3
[2024-03-24 16:06] VITALS: BP 122/58; PULSE 56; BMI 25.6
== END 2024-03-24 16:19 | disposition home or self-care (01) ==
PROVIDERS: PCP Nurse Practitioner Family; Visit Provider Surgery
DX: K60.30 Anal fistula, unspecified (principal)
CPT/HCPCS: 99212

== ENCOUNTER → 2024-03-24 15:45 | Outpatient (BNVA) | payer OTHER, SELFPAY | PROVIDERS: PCP Nurse Practitioner Family; Visit Provider Surgery ==

== ENCOUNTER 2024-04-27 13:42 | Outpatient (AMB) | payer OTHER, SELFPAY ==
[2024-04-27 13:45] VITALS: BP 119/61; PULSE 68; BMI 26.2
--- NOTE | 2024-04-27 13:45 | MHC.OFFVIS ---
Vital Signs 04/27/24 13:45 Height 6 ft 2 in Weight 204 lb 6 oz BMI 26.2 BP 119/61 Blood Pressure Location Rt brachial Position Sitting Pulse 68 Intake Visit Reasons: one month follow-up seton Intake Note: This patient presents for one month follow-up seton. Pt c/o; reports no complaints. Seam Checker Required: No Accompanied by: Self / Same As Patient Allergies shrimp Allergy (Unknown, Verified 04/27/24 13:46) Unknown milk Allergy (Unknown, Uncoded 04/27/24 13:46) Unknown Medication List - Last Reconciled 04/27/24 by Nelson Mckinley MD docusate sodium (Colace) 100 mg PO BID ibuprofen 600 mg PO Q6H PRN oxycodone-acetaminophen 5-325 mg (Percocet) 1 tab PO Q4-6H PRN HPI HPI one month follow-up seton: Details: He is here for follow-up for his anal fistula with a seton in place. He denies any problems at this time. He says that the seton is not bothering him. He denies any new drainage. [facility] Medical History Anal fistula No significant past medical history Surgical History Hx of surgical procedure (~03/31/23) History of surgery (02/14/20) History of wisdom tooth extraction Family History Father No problems noted. Mother No problems noted. Social History Housing: House Alcohol intake: current Alcohol intake frequency: a few times a month Patient Tobacco Use Status: Never used Tobacco Second Hand Smoke Exposure: No service: No Current occupational status: employed Cognitive needs: No Hearing needs: No Vision needs: No Review of Systems Const Denies chills and Denies fever(s) Card Denies chest pain at rest GI Denies abdominal pain Physical Exam Vital Signs: Last Vital Signs Pulse 68 04/27/24 13:45 BP 119/61 04/27/24 13:45 BMI result Body Mass Index 26.2 Const General: comfortable and no acute distress Resp Effort & Inspection: normal respiratory effort GI Other: Anal fistula noted with a very short tract, seton in place and this is still very tight around the remaining fistula tract, no new induration Palpation (GI): Soft to palpation Assessment & Plan Assessment & Plan (1) Anal fistula: Code(s): K60.3 - Anal fistula Category: Medical Plan: Seton in place. I am unable to tighten the seton anymore as this fistulous tract is very short and the seton is still tight around this. I will let this cut through completely. I will not remove this at this time as this is a recurrent fistula. We will see him in about 2 months. Coding Level of Care Code Est Pt Level 2 (56742) Diagnoses Anal fistula K60.3
== END 2024-04-27 14:08 | disposition home or self-care (01) ==
PROVIDERS: PCP Nurse Practitioner Family; Visit Provider Surgery
DX: K60.30 Anal fistula, unspecified (principal)
CPT/HCPCS: 99212

== ENCOUNTER → 2024-04-27 13:42 | Outpatient (BNVA) | payer OTHER, SELFPAY | PROVIDERS: PCP Nurse Practitioner Family; Visit Provider Surgery ==

== ENCOUNTER 2024-09-07 10:42 | Outpatient (AMB) | payer OTHER, SELFPAY ==
--- NOTE | 2024-09-07 10:43 | A.OFFVIS_ITS ---
Vital Signs 09/07/24 10:48 Height 6 ft 2 in Weight 198 lb BMI 25.4 BP 119/66 Blood Pressure Location Rt brachial Position Sitting Pulse 62 Intake Visit Reasons: fuv anal fistula Intake Note: Patient here for follow up anal fistula. Reports seton will need adjustment today. Patient c/o: denies diarrhea, constipation. Seton placement: 03-31-2023 Parliamentary Counsel Required: No Accompanied by: Self / Same As Patient Allergies shrimp Allergy (Unknown, Verified 09/07/24 10:48) Unknown milk Allergy (Unknown, Uncoded 09/07/24 10:48) Unknown Medication List - Last Reconciled 09/07/24 by Nelson Mckinley MD docusate sodium (Colace) 100 mg PO BID ibuprofen 600 mg PO Q6H PRN HPI HPI fuv anal fistula: Details: 43-year-old male here for follow-up for his anal fistula. He has a seton in place since March,. We had been tightening this and is fistula tract is much shorter now. However, we have not remove the seton because this is a recurrent fistula and he says he continues to have some drainage she was was a little concerning. He denies any new complaints. He says he feels well overall. He denies any other indurated areas. [facility] Medical History Anal fistula No significant past medical history Surgical History Hx of surgical procedure (~03/31/23) History of surgery (02/14/20) History of wisdom tooth extraction Family History Father No problems noted. Mother No problems noted. Social History Housing: House Alcohol intake: current Alcohol intake frequency: a few times a month Patient Tobacco Use Status: Never used Tobacco Second Hand Smoke Exposure: No service: No Current occupational status: employed Cognitive needs: No Hearing needs: No Vision needs: No Review of Systems Const Denies chills and Denies fever(s) Card Denies chest pain, Denies dyspnea and Denies dyspnea on exertion Resp Denies cough, Denies dyspnea and Denies dyspnea on exertion GI Denies hematochezia and Denies change in bowel habits Denies hematuria and Denies difficulty urinating Musc Denies back pain and Denies limited range of motion Neuro Denies focal weakness and Denies convulsions Psych Denies depression and Denies mood swings Physical Exam Vital Signs: Last Vital Signs Pulse 62 09/07/24 10:48 BP 119/66 09/07/24 10:48 BMI result Body Mass Index 25.4 Const General: comfortable and no acute distress Orientation/consciousness: patient oriented x3 Neck Neck: Yes no lymphadenopathy Resp Auscultation: clear to auscultation bilaterally Cardio Rhythm: regular rhythm GI Other: Rectal exam shows the seton to be in place on the left side with a very short residual fistula tract, no new induration, some hypergranulation tissue on the sinus Palpation (GI): Soft to palpation, nontender and no guarding Neuro General: patient oriented x3 Assessment & Plan Assessment & Plan (1) Anal fistula: Code(s): K60.3 - Anal fistula Category: Medical Plan: He still has a seton in place but this fistula tract has decreased in length considerably. However, I told him that since this is a recurrent fistula, it may be best to do an exam under anesthesia and do a fistulotomy when we removed the seton to this with a blade done in the operating room. This will allow me to examine the entire area for any diagnosis fistulous tract I explained to the technique of the procedure. I reviewed the risks including but not limited to bleeding, infections, recurrence, as well as the benefits and alternatives He said he wants to proceed with exam under anesthesia, fistulotomy and removal of the seton in the operating room. Coding Level of Care Code Est Pt Level 3 (03460) Diagnoses Anal fistula K60.3
[2024-09-07 10:48] VITALS: BP 119/66; PULSE 62; BMI 25.4
== END 2024-09-07 10:59 | disposition home or self-care (01) ==
LOC: HO.HGS 10:42
PROVIDERS: PCP Nurse Practitioner Family; Visit Provider Surgery
DX: K60.30 Anal fistula, unspecified (principal)
CPT/HCPCS: 99213

== ENCOUNTER → 2024-09-07 10:42 | Outpatient (BNVA) | payer OTHER, SELFPAY | PROVIDERS: PCP Nurse Practitioner Family; Visit Provider Surgery ==

== ENCOUNTER 2024-09-30 06:57 | Day surgery (SDC) | payer OTHER, SELFPAY ==
[2024-09-28 12:49] VITALS: BMI 25.4
--- NOTE | 2024-09-29 09:19 | HO.ANESPROP2 ---
Documented by User: Vannesa Kim NP 09/29/24 09:19 HPI - Anesthesia Eval Consult details Narrative: 44yo M for EUA,Fistulotomy,Removal of Seton PMFSH Active Problems Active Problems: All Active Problems Toenail fungus (Acute) Skin lesion (Acute) Physical exam (Acute) Anal fistula (Acute) Perianal abscess (Acute) Past Medical History Medical History Anal fistula No significant past medical history Family History Family History Father No problems noted. Mother No problems noted. Surgical History Surgical History Hx of surgical procedure (~03/31/23) History of surgery (02/14/20) History of wisdom tooth extraction History of Problems with Anesthesia: No Social History Social History Housing: House Are you a primary personal care home administrator to a significant other at home: No Do you presently have visiting nurse or other home services: No Alcohol intake: current Alcohol intake frequency: a few times a month Patient Tobacco Use Status: Never used Tobacco Second Hand Smoke Exposure: No Use of substances other than those prescribed or required for medical reasons: Yes Substance Use Type Other:: RARE Have you been hit, kicked, punched, or otherwise hurt by someone within the past year? If so, by whom?: No Are you DNR?: No Advance Directives: No Advance Directives Information Provided: No Advance Directives on File: No Poor oral hygiene: No service: No Current occupational status: employed Cognitive needs: No Hearing needs: No Vision needs: No Meds Allergies Allergy/AdvReac Type Severity Reaction Status Date / Time shrimp Allergy Unknown Unknown Verified 09/30/24 07:06 milk Allergy Intermediate Gastrointestinal Uncoded 09/30/24 07:06 Upset Exam Height,Weight and Vital Signs: Height 6 ft 2 in Weight 89.811 kg Assessment and Plan Assessment Anesthesia Assessment: Chart Reviewed Final Anesthetic Review History of Problems with Anesthesia: No Documented by User: Henok Castillo MD 09/30/24 08:46 PMFSH Past Medical History Medical History Anal fistula No significant past medical history Functional capacity: independent ambulation Family History Family History Father No problems noted. Mother No problems noted. Family history of problems with anesthesia: No Surgical History Surgical History Hx of surgical procedure (~03/31/23) History of surgery (02/14/20) History of wisdom tooth extraction Social History Social History Housing: House Are you a primary personal care home administrator to a significant other at home: No Do you presently have visiting nurse or other home services: No Alcohol intake: current Alcohol intake frequency: a few times a month Patient Tobacco Use Status: Never used Tobacco Second Hand Smoke Exposure: No Use of substances other than those prescribed or required for medical reasons: Yes Substance Use Type Other:: RARE Have you been hit, kicked, punched, or otherwise hurt by someone within the past year? If so, by whom?: No Are you DNR?: No Advance Directives: No Advance Directives Information Provided: No Advance Directives on File: No Poor oral hygiene: No service: No Current occupational status: employed Cognitive needs: No Hearing needs: No Vision needs: No Meds Allergies Allergy/AdvReac Type Severity Reaction Status Date / Time shrimp Allergy Unknown Unknown Verified 09/30/24 07:06 milk Allergy Intermediate Gastrointestinal Uncoded 09/30/24 07:06 Upset Exam Exam Date and Time: 09/30/2024 Airway Mallampati Class: II TM Dist: >3cm Heart: rrr Lungs: cta Assessment and Plan Assessment Anesthesia Assessment: Anesthesia Plan Discussed and Chart Reviewed Final Anesthetic Review Family History of Problems with Anesthesia: No NPO: Yes ASA Class: II Final Preanesthetic Review: No Changes in Pt Med Stat, Meds/Allgs Chart Reviewed, Consent Obtained/Reviewed and Anes Risks/Benef Reviewed Patient Risk: Low Anesthetic Plan Anesthetic Plan: GA Disposition: Standard PACU
[2024-09-30] VITALS (7 sets, daily range): BP systolic 101–115; BP diastolic 47–61; PULSE 52–63; RESP 16; TEMP 36.6–36.7; O2SAT 99–100; BMI 25.1
[2024-09-30] MEDS: Lactated Ringers 1,000 ML 100 ML IVCONT (07:25)
--- NOTE | 2024-09-30 08:17 | MHC.SHP ---
Pre-Procedural Eval Section A - 24 Hr Update-Section A only Date of Service: 09/30/24 The patient is an INPATIENT: No Changes since office visit: No Cold of Flu in the past 2 weeks, No New Medical Problems, No Changes in Medication and No Patient answered all questions The patient has been examined within 24 hours of the surgical procedure. The History & Physical has been completed within 30 days and I have reviewed it.: Yes Section B - Complete if H&P > 30 days Chief Complaint: Anal fistula, unspecified Allergies: Allergies Allergy/AdvReac Type Severity Reaction Status Date / Time shrimp Allergy Unknown Unknown Verified 09/30/24 07:06 milk Allergy Intermediate Gastrointestinal Uncoded 09/30/24 07:06 Upset Plan I have reviewed the history and physical and performed a pertinent physical examination on my patient. No changes have occurred unless specified. Time Spent With Patient Time: Total time managing care of this patient today ____ minutes.
[2024-09-30] MEDS: cefoTEtan disodium 2 GM VIAL IVPUSH (09:00)
--- NOTE | 2024-09-30 09:23 | W.PM.OPN ---
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 He has had this for more than a year now. The fistula tract is shortened and I explained to him that it may be best to do a fistulotomy of the remaining fistula tract remove the seton. He understood the technique of the planned procedure as well as the risks, benefits, and alternatives He was brought to the operating room. He was what placed in modified lithotomy position under general anesthesia via laryngeal mask airway. The perianal area was prepped and draped in the usual sterile fashion. A surgical time-out was done. The patient received Cefotan 2 g IV preoperatively Examination of the anal orifice revealed the seton to be in place on the left side with a short fistula tract. I inserted the Izquierdo retractor to exposed the anal canal with the residual fistula tract visible. Examination of the anal canal did not reveal any other pathology. Again, the remaining fistula tract was very short, with the seton tight around this I expose the fistula tract and divided the remaining tract with electrocautery. The seton was removed I cauterized the granulating surface of the remaining fistula tract to decrease recurrence of recurrence there was no sphincter involvement. Once it appeared that we had cauterized the surface of the remaining fistula tract, I proceeded to then infiltrated the perianal area with Marcaine 0.5% for postop analgesia The procedure was then completed. There were no other lesions in the anal canal. There was no other indurated areas any evidence of any fistulous tract The patient tolerated procedure well. There were no immediate complications. Initial and final counts of sponges and instruments were correct. Estimated blood loss was less than 10 cc. The patient was extubated without difficulty and transferred to the recovery room with stable vital signs.
== END 2024-09-30 10:16 | disposition home or self-care (01) ==
PROVIDERS: Visit Provider Surgery
PROC: (CPT 46030; principal; 2024-09-30 09:30)
DX: K60.30 Anal fistula, unspecified (principal); Z96.89 Presence of other specified functional implants; Z79.1 Long term (current) use of non-steroidal anti-inflammatories (NSAID); Z79.899 Other long term (current) drug therapy; Z98.890 Other specified postprocedural states
CPT/HCPCS: 46030; J2003; J2250; J2704; J2795; J3010

== ENCOUNTER → 2024-09-30 06:57 | Outpatient (BNV) | payer OTHER, SELFPAY | PROVIDERS: Visit Provider Surgery | DX: K60.313 Anal fistula, simple, recurrent (principal) | CPT/HCPCS: 46030; 46270 ==